=== PATIENT | male | born 1990 | race Caucasian/White ===

== ENCOUNTER 2022-10-08 09:05 | Emergency (ER) | payer MEDICAID ==
[2022-10-08] MEDS: LORazepam 2 MG/ML SDV IVPUSH STA (09:21)
[2022-10-08] MEDS: OLANZapine 10 MG Vial IM STA (09:29)
[2022-10-08 09:34] LABS: ESTIMATED GFR 104 mL/min (>60)
[2022-10-08 09:43] LABS: ACETAMINOPHEN < 2 ug/mL (<2)
[2022-10-08] MEDS: LORazepam 2 MG/ML SDV ONE (09:44)
[2022-10-08] MEDS: OLANZapine 10 MG Vial ONE (09:44)
[2022-10-08] MEDS: Diazepam 5 MG Tab PO ONE (13:17)
[2022-10-09] MEDS: Nicotine 14 MG/24 Hr Patch TRDERM ONE (10:05)
[2022-10-09] MEDS: Sodium Chloride 0.9% 10 ML Syringe FLUSH PRN (12:25)
[2022-10-09] MEDS: LORazepam 2 MG/ML SDV IVPUSH STA (12:25)
[2022-10-09] MEDS: OLANZapine 10 MG Vial IM STA (12:26)
== END 2022-10-09 16:05 ==
LOC: FB.ED 09:05
DX: F23 Brief psychotic disorder (principal)
CPT/HCPCS: 36415; 70450; 72125; 73501-LT; 80053; 80143; 80179; 80307; 82550; 84439; 84443; 85025; 85610; 85730; 96372; 96374; 96376; 99285-25; A9270-GY; J2060; J2405; J3490; U0002